=== PATIENT | female | born 1955 | race Caucasian/White ===

== ENCOUNTER 2024-05-12 07:32 | Outpatient (CLI) | payer OTHER ==
[~2024-05-12 07:32] MED LIST: LAMICTAL200 MG; [UNRECOGNIZED DRUG - OTHER] PO
[2024-05-12 08:24] LABS: HEMATOCRIT 39.6 % (36.0-45.00); HEMOGLOBIN 13.3 g/dL (12.0-15.00); MEAN CELL VOLUME 92.8 fL (80.00-100.00); MEAN CORPUSCULAR HEMOGLOBIN 31.1 pg (27.00-32.0); MEAN CORPUSCULAR HGB CONC 33.5 g/dl (32.0-36.0); PLATELET COUNT 328 K/uL (150-450); RED BLOOD COUNT 4.27 M/uL (4.00-6.00); RED CELL DISTRIBUTION WIDTH 13.8 % (11.5-14.5)
[2024-05-12 08:33] LABS: PH,URINE 5.5 (5.0-8.0); URINE APPEARANCE Clear; URINE BILIRRUBIN Negative (NEGATIVE); URINE BLOOD Negative; URINE COLOR Yellow; URINE GLUCOSE Negative (NEGATIVE); URINE KETONE Negative (NEGATIVE); URINE LEUKOCYTE Moderate; URINE NITRATE Negative; URINE PROTEIN Negative (NEGATIVE); URINE UROBILINOGEN 0.2 E.U./dl
[2024-05-12 08:38] LABS: URINE BACTERIA 992.5 uL (0.0-1933); URINE EPITHELIAL CELLS 26.7 uL (0.0-38.8); URINE RBC 4.5 uL (0.0-20.8); URINE WBC 70.5 uL (0.0-23.2)
[2024-05-12 09:00] LABS: INR 0.96; PARTIAL THROMBOPLASTIN TIME 26.5 SECONDS (22.0-34.0); PROTHROMBIN TIME 10.5 SECONDS (9.0-11.5)
[2024-05-12 09:54] LABS: URINE CRYSTALS FEW /HPF
[2024-05-12 10:14] LABS: ALBUMIN 4.1 gm/dL (3.4-5.0); BILIRUBIN TOTAL 0.57 mg/dL (0.3-1.2); CREATININE SERUM 1.19 mg/dL (0.55-1.02); GFR 45.11; GLOBULINA 4.2 G/DL (2.4-3.5); POTASSIUM 4.71 mEq/L (3.5-5.1); TOTAL PROTEIN 8.3 gm/dL (6.4-8.2)
[2024-05-12 10:17] LABS: TSH 0.217 uIU/mL (0.358-3.74)
[2024-05-12] MEDS ORDERED: COZAAR50 MG PO (12:22)
[2024-05-13] MEDS ORDERED: NAPR500T14 PO (14:20)
[2024-05-13] MEDS ORDERED: DOXYCYCLINE HY100 MG PO (14:20)
== END 2024-05-12 07:33 | disposition home or self-care (01) ==
LOC: RAD 07:32
PROVIDERS: ATTEND Obstetrics & Gynecology
DX: J45.998 Other asthma (principal)

== ENCOUNTER 2024-05-13 05:45 | Day surgery (SDC) | payer OTHER ==
[2024-05-12 12:23] VITALS: BP 190/79
[~2024-05-13] VITALS: Ht 160 cm; Wt 64.4 kg
[~2024-05-13 05:45] MED LIST changes: +COZAAR50 MG PO
[2024-05-13] MEDS ORDERED: CEFOXITIN SODIUM 2,000 MG VIAL IV ONE (10:50)
[2024-05-13] MEDS ORDERED: POVIDONE-IODINE 118 ML BOTT TOP ONE (11:50)
[2024-05-13] MEDS ORDERED: MORPHINE SULFATE 4 MG/ML VIAL IV ONE (14:00)
[2024-05-13] MEDS ORDERED: MORPHINE SULFATE 4 MG/ML VIAL IV PRN (14:15)
[2024-05-13] MEDS ORDERED: PROMETHAZINE HCL 50 MG/ML AMPUL IM ONE (14:15)
[2024-05-13] MEDS ORDERED: NAPR500T14 PO (14:20)
[2024-05-13] MEDS ORDERED: DOXYCYCLINE HY100 MG PO (14:20)
[2024-05-13] MEDS ORDERED: hydrALAZINE HCL 20 MG VIAL ONE (15:07)
== END 2024-05-13 17:40 | disposition home or self-care (01) ==
LOC: CIR.AMB 05:45
PROVIDERS: ATTEND Obstetrics & Gynecology
DX: N87.0 Mild cervical dysplasia (principal); R87.810 Cervical high risk human papillomavirus (HPV) DNA test positive; I10 Essential (primary) hypertension; Z88.6 Allergy status to analgesic agent